=== PATIENT | female | born 1945 | race Caucasian/White ===

== ENCOUNTER → 2017-01-29 | Outpatient (REF) | payer MEDICARE, OTHER ==
[2017-02-01 00:06] LABS: Lyme Disease IgG/IgM Antibodie <0.91 ISR (0.00-0.90); Lyme Disease IgM Ab Quantitati <0.80 index (0.00-0.79)
== END ==
LOC: M LAB REF 13:53
PROVIDERS: ATTEND Nurse Practitioner Adult Health
DX: M25.50 Pain in unspecified joint (principal)

== ENCOUNTER → 2017-02-13 | Outpatient (REF) | payer MEDICARE, OTHER ==
[2017-02-13 20:26] LABS: COMPLEMENT C4 23.6 MG/DL (10-40)
[2017-02-16 00:06] LABS: COMPLEMENT TOTAL (CH50) 59 U/mL (42-60)
== END ==
LOC: M LAB REF 16:36
PROVIDERS: ATTEND Nurse Practitioner Adult Health
DX: M25.511 Pain in right shoulder (principal); M25.542 Pain in joints of left hand; M79.672 Pain in left foot; M25.532 Pain in left wrist

== ENCOUNTER → 2017-03-01 | Outpatient (REF) | payer MEDICARE, OTHER | LOC: M LAB REF 12:41 | PROVIDERS: ATTEND Nurse Practitioner Adult Health | DX: K14.0 Glossitis (principal) ==

== ENCOUNTER 2017-08-09 08:50 | Day surgery (SDC) | payer OTHER ==
[2017-08-09] MEDS: NS 1,000 ML IV ×2 (10:00)
[2017-08-09] MEDS ORDERED: PROPOFOL 200 MG/20 ML VIAL As Ordered ×2 (10:59)
== END 2017-08-09 11:32 | disposition home or self-care (01) ==
LOC: M SDC 08:50
DX: Z86.010 Personal history of colon polyps (principal); J45.909 Unspecified asthma, uncomplicated; E03.9 Hypothyroidism, unspecified; Z79.899 Other long term (current) drug therapy
CPT/HCPCS: G0105

== ENCOUNTER → 2020-11-01 | Outpatient (CLI) | payer OTHER ==
[~2020-11-01] MED LIST: ASPI81TA26 PO; ATEN25TA PO; CENTTAB47 PO; CLOB0.0526 EX; DOXA1TAB40 PO; EPIP0.3I2 IJ; METO1TAB87 PO; MOVE1TAB PO; PROAAER10 INH; ROPI0.5T3 PO; SIMV40TA20 PO; SYNT75TA PO
--- NOTE | 2020-11-01 13:34 | DEXAMM ---
INDICATION: OSTEOPOROSIS. COMPARISON: Comparison DEXA studies October 17, 2018 and October 22, 2013.. TECHNIQUE: Bone density was measured using dual-energy x-ray absorptionmetry (DEXA). FINDINGS: AP SPINE L1-L4 BMD 1.055 g/cm2 Young Adult T-Score -1.1 Age Matched Z-Score 0.6. LT FEMUR, TOTAL BMD 0.852 g/cm2 Young Adult T-Score -1.2 Age Matched Z-Score 0.4. LT NECK BMD 0.827 g/cm2 Young Adult T-Score -1.5 Age Matched Z-Score 0.3. RT FEMUR, TOTAL BMD 0.846 g/cm2 Young Adult T-Score -1.3 Age Matched Z-Score 0.4. RT NECK BMD 0.823 g/cm2 Young Adult T-Score -1.5 Age Matched Z-Score 0.3. IMPRESSION: There is low bone density of the spine. There is low bone density of the left hip. There is low bone density of the right hip. The density of the spine has increased 7.1% since the initial exam on October 22, 2013. The density of the spine increased 6.4% since most recent exam on October 17, 2018. The density of the left hip has decreased 0.8% since initial exam on October 22, 2013. The density of the left hip has decreased 4.6% since most recent exam on October 17, 2018. The density of the right hip has increased 0.8% since the initial exam on August 01, 2017. The density of the right hip has increased 4.1% since the most recent exam on October 17, 2018. FOLLOW-UP: Recommendation for the next bone density exam: 2 years. <Electronically signed by Marcus Ball > 11/01/20 [id number]
== END ==
LOC: M WHC 09:21
PROVIDERS: ATTEND Internal Medicine
DX: M81.0 Age-related osteoporosis without current pathological fracture (principal)

== ENCOUNTER → 2021-06-30 | Outpatient (CLI) | payer MEDICARE, OTHER | LOC: M WHC 08:34 | PROVIDERS: ATTEND Internal Medicine | DX: Z12.31 Encounter for screening mammogram for malignant neoplasm of breast (principal) ==

== ENCOUNTER → 2022-09-13 | Outpatient (CLI) | payer MEDICARE | LOC: M WHC 09:40 | PROVIDERS: ATTEND Internal Medicine | DX: Z12.31 Encounter for screening mammogram for malignant neoplasm of breast (principal) ==

== ENCOUNTER → 2022-11-02 | Outpatient (CLI) | payer MEDICARE | LOC: M WHC 10:46 | PROVIDERS: ATTEND Internal Medicine | DX: M81.0 Age-related osteoporosis without current pathological fracture (principal) ==

== ENCOUNTER → 2023-06-27 | Outpatient (CLI) | payer MEDICARE ==
[~2023-06-27] MED LIST changes: -ROPI0.5T3 PO; +ROPI0.5T33 PO
== END ==
LOC: M WUC 14:14
PROVIDERS: ATTEND Nurse Practitioner Family
DX: R05.9 Cough, unspecified (principal); R06.02 Shortness of breath

== ENCOUNTER → 2023-06-27 | Outpatient (REF) | payer MEDICARE ==
[2023-06-27 19:53] LABS: RSV AMPLIFICATION NEGATIVE (NEGATIVE)
== END ==
LOC: M LAB REF 16:20
PROVIDERS: ATTEND Nurse Practitioner Family
DX: R06.02 Shortness of breath (principal)

== ENCOUNTER → 2023-07-05 | Outpatient (CLI) | payer MEDICARE | LOC: M RAD 10:14 | PROVIDERS: ATTEND Nurse Practitioner Family | DX: I82.442 Acute embolism and thrombosis of left tibial vein (principal); I82.451 Acute embolism and thrombosis of right peroneal vein ==

== ENCOUNTER → 2023-09-18 | Outpatient (CLI) | payer MEDICARE | LOC: M WHC 11:11 | PROVIDERS: ATTEND Nurse Practitioner Family | DX: Z12.31 Encounter for screening mammogram for malignant neoplasm of breast (principal) ==

== ENCOUNTER → 2023-10-28 | Outpatient (REF) | payer MEDICARE | LOC: M LAB REF 16:11 | PROVIDERS: ATTEND Internal Medicine | DX: I82.492 Acute embolism and thrombosis of other specified deep vein of left lower extremity (principal) ==

== ENCOUNTER → 2023-11-19 | Outpatient (CLI) | payer MEDICARE | LOC: M RAD 13:35 | PROVIDERS: ATTEND Internal Medicine | DX: I82.4Z2 Acute embolism and thrombosis of unspecified deep veins of left distal lower extremity (principal) ==

== ENCOUNTER → 2024-03-19 | Outpatient (CLI) | payer MEDICARE ==
[~2024-03-19] MED LIST changes: +ISOVUE-300 61% 100ML VIAL As Ordered ONE; +LIDOCAINE 1% MDV 20ML VIAL As Ordered ONE; +methylPREDNISolone SUSP 40MG/ML 1ML VIAL (DEPO MEDROL) As Ordered ONE
== END ==
LOC: M RAD 14:54
PROVIDERS: ATTEND Physician Assistant Surgical
DX: M16.11 Unilateral primary osteoarthritis, right hip (principal)
CPT/HCPCS: 20610; 77002; J1010; Q9967

== ENCOUNTER → 2024-08-21 | Outpatient (CLI) | payer MEDICARE ==
[~2024-08-21] MED LIST changes: -ISOVUE-300 61% 100ML VIAL As Ordered ONE; -LIDOCAINE 1% MDV 20ML VIAL As Ordered ONE; -methylPREDNISolone SUSP 40MG/ML 1ML VIAL (DEPO MEDROL) As Ordered ONE
== END ==
LOC: M WHC 14:13
PROVIDERS: ATTEND Nurse Practitioner Adult Health
DX: R10.30 Lower abdominal pain, unspecified (principal)

== ENCOUNTER → 2024-09-29 | Outpatient (CLI) | payer MEDICARE | LOC: M WHC 08:47 | PROVIDERS: ATTEND Internal Medicine | DX: Z12.31 Encounter for screening mammogram for malignant neoplasm of breast (principal) ==

== ENCOUNTER 2024-10-22 06:10 | Day surgery (SDC) | payer MEDICARE ==
[~2024-10-22] VITALS: Ht 160 cm; Wt 70.8 kg
[~2024-10-22 06:10] MED LIST changes: +ALBU8.5H INH; +AMLO1TAB24 PO; +ATOR1TAB21 PO; +LOSA100T46 PO; +ROPI5TAB19 PO
[2024-10-22] MEDS ORDERED: LR 1,000 ML IV SCH (06:20)
[2024-10-22] MEDS ORDERED: MULT1TAB50 PO (06:47)
[2024-10-22] MEDS ORDERED: propofoL 200 MG/20 ML VIAL As Ordered ONE (06:56)
[2024-10-22] MEDS ORDERED: fentaNYL 100 MCG/2 ML INJECTION As Ordered ONE (06:56)
[2024-10-22] MEDS ORDERED: LIDOCAINE 2% 100MG/5ML SDV (FOR ANES.) As Ordered ONE (06:56)
[2024-10-22] MEDS ORDERED: ACETAMINOPHEN 1000MG/100ML IV BAG As Ordered ONE (06:56)
[2024-10-22] MEDS ORDERED: ONDANSETRON 4MG 2ML VIAL As Ordered ONE (06:56)
[2024-10-22] MEDS: LIDOCAINE 1% MDV 20ML VIAL As Ordered ONE (07:50)
[2024-10-22] MEDS ORDERED: KETOROLAC 30 MG/ML 1ML VIAL As Ordered ONE (08:25)
[2024-10-22 09:00] VITALS: BP 178/72; TEMP 96.5; O2SAT 99
== END 2024-10-22 09:10 | disposition home or self-care (01) ==
LOC: M SDC 06:10
PROVIDERS: ATTEND Specialist
DX: N85.00 Endometrial hyperplasia, unspecified (principal); E03.9 Hypothyroidism, unspecified; J45.909 Unspecified asthma, uncomplicated; Z86.718 Personal history of other venous thrombosis and embolism; Z85.828 Personal history of other malignant neoplasm of skin; Z79.899 Other long term (current) drug therapy; Z79.890 Hormone replacement therapy; Z92.3 Personal history of irradiation; Z98.51 Tubal ligation status
CPT/HCPCS: 58558; 88305; J0131; J1100; J1885; J2405; J3010

== ENCOUNTER → 2025-05-28 | Outpatient (CLI) | payer MEDICARE ==
[~2025-05-28] MED LIST changes: +MULT1TAB50 PO
== END ==
LOC: M RAD 14:35
PROVIDERS: ATTEND Internal Medicine
DX: I65.22 Occlusion and stenosis of left carotid artery (principal)